=== PATIENT | male | born 1965 | race Caucasian/White ===

== ENCOUNTER 2018-06-29 19:13 | Inpatient (IN) | payer SELFPAY ==
[~2018-06-29] VITALS: Ht 175.3 cm; Wt 83.9 kg
[~2018-06-29 19:13] MED LIST: FLUSH 10 ML SYR IVP PRN; LISI-355 PO; LR 1000 ML BAG 1000 ML IV PRN; ONDANSETRON 4 MG/2 ML VIAL IVP PRN; PROMETHAZINE 25 MG/ML 1 ML AMP IVP PRN; VARD10TA20 PO; ZOLPIDEM TARTRATE 5 MG TAB PO PRN; ceFAZolin(*) 1 GM VIAL 1 GM in NS(*) 0.9% 100 ML MINI-BAG 100 ML IVPB SCH; diphenhydrAMINE 25 MG CAP PO PRN; diphenhydrAMINE 50 MG/ML VIAL IVP PRN
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
[2018-06-29] MEDS ORDERED: ONDANSETRON 4 MG/2 ML VIAL IVP ONE (19:20)
[2018-06-29] MEDS ORDERED: NS(*) 0.9% 1000 ML BAG 1,000 ML IV ONE (19:20)
[2018-06-29] MEDS ORDERED: ceFAZolin(*) 1 GM VIAL 1 GM in NS(*) 0.9% 100 ML MINI-BAG 100 ML IV ONE (19:20)
[2018-06-29] MEDS ORDERED: MORPHINE 4 MG/ML SDV IVP ONE (19:20)
[2018-06-29] MEDS ORDERED: DIPHTH/TETANUS/ACEL. PERTUSSIS IM ONLY ONE (19:20)
[2018-06-29] MEDS ORDERED: HYDROMORPHONE HCL 1 MG/ML SYRINGE IVP ONE ×2 (19:30→19:50)
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
[2018-06-29 20:11] LABS: PLATELET COUNT, AUTOMATED 376 K/uL (150-450)
[2018-06-29] MEDS ORDERED: NORMOSOL R SOLN(*) 1000 ML BAG 1,000 ML IV ONE (20:21)
[2018-06-29] MEDS ORDERED: FAMOTIDINE(*) 20MG/50ML PREMIX 50 ML IVPB ONE (20:21)
[2018-06-29] MEDS ORDERED: LIDOCAINE MPF 1% 5 ML VIAL ONE (21:00)
[2018-06-29] MEDS ORDERED: PROPOFOL EMUL(*) 10MG/ML 20 ML 20 ML ONE (21:00)
[2018-06-29] MEDS ORDERED: METOCLOPRAMIDE 10 MG/2 ML SDV ONE (21:00)
[2018-06-29] MEDS ORDERED: ONDANSETRON 4 MG/2 ML VIAL ONE (21:00)
[2018-06-29] MEDS ORDERED: DEXAMETHASONE SOD 4 MG/ML VIAL ONE (21:01)
[2018-06-29] MEDS ORDERED: ROPIVACAINE 0.2% 20 ML VIAL ONE (21:03)
[2018-06-29] MEDS ORDERED: fentaNYL CITR 250 MCG/5 ML AMP ONE (21:09)
[2018-06-29] MEDS ORDERED: ceFAZolin 1 GM VIAL ONE (21:35)
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
[2018-06-29] MEDS ORDERED: HYDROmorphone HCL 2 MG/ML SDV ONE (22:35)
[2018-06-29 22:37] LABS: INR 0.92
[2018-06-29] MEDS ORDERED: LABETALOL HCL 25 MG/5 ML SYRINGE ONE (22:52)
[2018-06-29] MEDS ORDERED: ACETAMINOPHEN(*)1000 MG/100 ML 100 ML IVPB ONE (23:02)
[2018-06-29] MEDS ORDERED: NEOMYCIN/POLYMYX/BACITR 30 GM TP ONE (23:55)
[2018-06-30] VITALS (13 sets, daily range): BP systolic 104–147; BP diastolic 65–106
[2018-06-30] MEDS ORDERED: APAP/HYDROCODONE 325/5 TAB ONE (01:34)
[2018-06-30] MEDS ORDERED: APAP/HYDROCODONE 325/5 TAB PO PRN (01:35)
[2018-06-30] MEDS: APAP/HYDROCODONE 325/5 TAB PO PRN ×3 (01:37→10:38)
[2018-06-30] MEDS ORDERED: ceFAZolin(*) 1 GM VIAL 1 GM in NS(*) 0.9% 100 ML MINI-BAG 100 ML IVPB SCH (02:00)
[2018-06-30] MEDS ORDERED: NS 0.9% IVPB SCH (02:10)
[2018-06-30] MEDS ORDERED: CEFAZOLIN IVPB SCH (02:10)
[2018-06-30] MEDS ORDERED: MINI IVPB SCH (02:10)
[2018-06-30] MEDS: HYDROmorphone HCL 2 MG/ML SDV IVP PRN ×2 (02:22→04:22)
[2018-06-30] MEDS ORDERED: ceFAZolin 1 GM VIAL ONE (02:24)
[2018-06-30] MEDS ORDERED: NS(*) 0.9% 100 ML BAG 100 ML ONE (02:25)
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
[2018-06-30] MEDS: POTASSIUM CHL 20 MEQ TABCR PO SCH ×2 (08:42→11:53)
[2018-06-30] MEDS ORDERED: LISINOPRIL 20 MG TAB PO SCH (09:00)
[2018-06-30] MEDS ORDERED: HYDROCHLOROTHIAZIDE 25 MG TAB PO SCH (09:00)
[2018-06-30] MEDS ORDERED: ceFAZolin(*) 2GM/D5W 50ML 50 ML IVPB SCH (10:00)
[2018-06-30] MEDS ORDERED: HYDR-653 PO (10:18)
[2018-06-30] MEDS ORDERED: ceFAZolin(*) 1 GM VIAL 2 GM in NS(*) 0.9% 100 ML BAG 100 ML IV ONE (18:00)
== END 2018-06-30 12:14 | disposition home or self-care (01) | DRG 514 ==
LOC: ER 19:27 → OR 20:40 → MED 06-30 01:15
PROVIDERS: ADMIT Orthopaedic Surgery; ATTEND Orthopaedic Surgery
PROC: 0PSQ04Z Reposition Left Metacarpal with Internal Fixation Device, Open Approach (ICD-10-PCS; principal; 2018-06-30)
PROC: 0PSQ04Z Reposition Left Metacarpal with Internal Fixation Device, Open Approach (ICD-10-PCS; 2018-06-30)
PROC: 0JQK0ZZ Repair Left Hand Subcutaneous Tissue and Fascia, Open Approach (ICD-10-PCS; 2018-06-30)
PROC: 0LD80ZZ Extraction of Left Hand Tendon, Open Approach (ICD-10-PCS; 2018-06-30)
DX: S62.305B Unspecified fracture of fourth metacarpal bone, left hand, initial encounter for open fracture (principal); I10 Essential (primary) hypertension; F10.120 Alcohol abuse with intoxication, uncomplicated; F17.210 Nicotine dependence, cigarettes, uncomplicated; S61.432A Puncture wound without foreign body of left hand, initial encounter; Y90.2 Blood alcohol level of 40-59 mg/100 ml; W32.0XXA Accidental handgun discharge, initial encounter; Y99.8 Other external cause status
CPT/HCPCS: 76000; 80320; 82040; 82247; 82310; 82374; 82435; 82565; 82947; 84075; 84132; 84155; 84295; 84450; 84460; 84520; 85025; 85610; 85730; 90471; 90715; 96365; 96375; 96376; 99285; A4565; C1713; J0131; J0690; J1100; J1170; J2001; J2270; J2405; J2704; J2765; J2795; J3010; J7030

== ENCOUNTER 2018-07-02 16:25 | Outpatient (RCR) | payer SELFPAY ==
[~2018-07-02 16:25] MED LIST changes: -FLUSH 10 ML SYR IVP PRN; +HYDR-653 PO; -LR 1000 ML BAG 1000 ML IV PRN; -ONDANSETRON 4 MG/2 ML VIAL IVP PRN; -PROMETHAZINE 25 MG/ML 1 ML AMP IVP PRN; -ZOLPIDEM TARTRATE 5 MG TAB PO PRN; -ceFAZolin(*) 1 GM VIAL 1 GM in NS(*) 0.9% 100 ML MINI-BAG 100 ML IVPB SCH; -diphenhydrAMINE 25 MG CAP PO PRN; -diphenhydrAMINE 50 MG/ML VIAL IVP PRN
--- NOTE | 2018-07-03 12:12 | Transitional Care Management ---
Assessment Visit Type: Telephone Visit (07/03 Jhonatan) Cardiac: WNL Respiratory: WNL GI: Nutrition: WNL Constipation?: No Musculoskeletal, Exercise: WNL Except Musculoskeletal, Excercise Com: 07/03 Has been up moving around but finds doing much is a problem d/t he is Left handed and he has that wrapped up. Mobility/Falls: WNL Integumentary: WNL Except Integumentary Comment: 07/03 Has left arm wrapped with edwin wrap up to elbow. A few bruises where he has had an IV but OK. Scheduled Follow-Up with Provi: No (06/02 Has not made an appt. I encouraged him to do so today as it was very important to so.) TCM Discharge Criteria Medication Knowledge: 07/03 went over meds. No problems Disease Management/Concern/Wha: 07/03 went over if the pain his arm increased he needed to call his dr right away.Side effects of pain meds. Transitional Care Comment: 06/[address] giang. He states he has a friend that can help some at home. Frustrated that he will be unable to work for a few weeks.Discussed the need to take meds as directed and make his FU appt with Dr on Monday. 07/02 attempted a call, no answer-left message 07/03 Jhonatan stated he was doing pretty good. Pain today seemed to be a little better and has not been taking pain as often as he was yesterday. He has not made an appointment with Dr Anne at this point. I really encouraged him to do so as it was so important that he f/u as directed. He stated he would do that today. Enc him not to take pain meds with alcohol. stated he wasnt. Copies to: CRYSTAL SINGLETON MD ; KAILEE MILLER Jul 03, 2018 12:12
--- NOTE | 2018-07-16 15:02 | Transitional Care Management ---
Assessment Cardiac: WNL Respiratory: WNL GI: Nutrition: WNL Constipation?: No Musculoskeletal, Exercise: WNL Except Musculoskeletal, Excercise Com: 07/03 Has been up moving around but finds doing much is a problem d/t he is Left handed and he has that wrapped up. Mobility/Falls: WNL Integumentary: WNL Except Integumentary Comment: 07/03 Has left arm wrapped with edwin wrap up to elbow. A few bruises where he has had an IV but OK. Scheduled Follow-Up with Provi: No (06/02 Has not made an appt. I encouraged him to do so today as it was very important to so.) TCM Discharge Criteria Medication Knowledge: 07/03 went over meds. No problems Disease Management/Concern/Wha: 07/03 went over if the pain his arm increased he needed to call his dr right away.Side effects of pain meds. Transitional Care Comment: 06/[address] giang. He states he has a friend that can help some at home. Frustrated that he will be unable to work for a few weeks.Discussed the need to take meds as directed and make his FU appt with Dr on Monday. 07/02 attempted a call, no answer-left message 07/03 Jhonatan stated he was doing pretty good. Pain today seemed to be a little better and has not been taking pain as often as he was yesterday. He has not made an appointment with Dr Anne at this point. I really encouraged him to do so as it was so important that he f/u as directed. He stated he would do that today. Enc him not to take pain meds with alcohol. stated he wasnt. 07/05 called, no answer, left message 07/10 Left message. 07/16 left message NGUYEN ENRIQUE July 16, 2018 15:02
--- NOTE | 2018-07-19 11:32 | Transitional Care Management ---
Assessment Cardiac: WNL Respiratory: WNL GI: Nutrition: WNL Constipation?: No Musculoskeletal, Exercise: WNL Except Musculoskeletal, Excercise Com: 07/03 Has been up moving around but finds doing much is a problem d/t he is Left handed and he has that wrapped up. Mobility/Falls: WNL Integumentary: WNL Except Integumentary Comment: 07/03 Has left arm wrapped with edwin wrap up to elbow. A few bruises where he has had an IV but OK. Scheduled Follow-Up with Provi: No (06/02 Has not made an appt. I encouraged him to do so today as it was very important to so.) TCM Discharge Criteria Medication Knowledge: 07/03 went over meds. No problems Disease Management/Concern/Wha: 07/03 went over if the pain his arm increased he needed to call his dr right away.Side effects of pain meds. Transitional Care Comment: 06/[address] giang. He states he has a friend that can help some at home. Frustrated that he will be unable to work for a few weeks.Discussed the need to take meds as directed and make his FU appt with Dr on Monday. 07/02 attempted a call, no answer-left message 07/03 Jhonatan stated he was doing pretty good. Pain today seemed to be a little better and has not been taking pain as often as he was yesterday. He has not made an appointment with Dr Anne at this point. I really encouraged him to do so as it was so important that he f/u as directed. He stated he would do that today. Enc him not to take pain meds with alcohol. stated he wasnt. 07/05 called, no answer, left message 07/10 Left message. 07/16 left message 07/19 left detailed message to f/u with Dr Meyer, s/s infection, f/u with PCP for HTN or referral to PCP with sliding scale NGUYEN ENRIQUE July 19, 2018 11:32
== END 2018-07-20 06:59 | disposition home or self-care (01) ==
LOC: TCM 16:25
PROVIDERS: ATTEND Nurse Practitioner
DX: Z02.9 Encounter for administrative examinations, unspecified (principal)